=== PATIENT | female | born 1940 | race African-American/Black ===

== ENCOUNTER 2018-06-30 19:32 | Inpatient (IN) | payer BC, OTHER ==
--- NOTE | 2018-06-30 19:40 | PDOC ---
Rapid Medical Evaluation Time Seen by Provider: 06/30/18 19:37 Medical Evaluation: Allergies Allergy/AdvReac Type Severity Reaction Status Date / Time No Known Allergies Allergy Verified 12/28/12 16:20 06/30/18 19:37 I have performed a brief in-person evaluation of this patient. The patient presents with a chief complaint of: sent by PMD for PE Pertinent physical exam findings: Lungs CTAB. RRR. No m/r/g. I have ordered the following: labs, ekg The patient will proceed to the ED for further evaluation. Discharge Disposition - Diagnosis Pulmonary embolism - Referrals - Patient Instructions - Post Discharge Activity
--- NOTE | 2018-06-30 19:55 | PDOC ---
History of Present Illness - General Chief Complaint: Shortness of Breath Stated Complaint: SEND BY DOCTOR Time Seen by Provider: 06/30/18 19:37 History Source: Patient Exam Limitations: No Limitations - History of Present Illness Initial Comments: Pt is a 78 yo F, with PMH of NIDDM and HTN, who is presenting after being sent by her PCP after a positive CT scan of the chest showing PE. Pt states she has had consistent SOB with exertion over the past year, with intermittent b/l LE swelling. Pt travels 1-2 times per year to [place] by plane to visit family. Pt was supposed to have the CTA done in February 2018, but did not follow up, and went to [place] for one month in April 2018. Pt denies any surgeries or estrogen medication use. Pt denies any recent fevers/chills, headache, vision changes, syncope, chest pain, palpitations, orthopnea/PND, nausea/vomiting, abdominal pain, urinary symptoms, or diarrhea/constipation. Social: Pt denies any cigarette, alcohol, or drug use. Pt travels to [place] as above. Surgical: no relevant history. Family: no relevant history. 06/30/18 22:08 Past History - Travel Traveled outside of the country in the last 30 days: No Close contact w/someone who was outside of country & ill: No - Past Medical History Allergies/Adverse Reactions: Allergies Allergy/AdvReac Type Severity Reaction Status Date / Time No Known Allergies Allergy Verified 06/30/18 19:41 Home Medications: Ambulatory Orders Aspirin [ASA -] 81 mg PO DAILY 12/28/12 Simvastatin [Zocor -] 20 mg PO HS 12/28/12 metFORMIN HCL [Glucophage] 1,000 mg PO BID 12/28/12 Losartan/Hydrochlorothiazide [Losartan-Hctz 100-25 mg Tab] 1 tab PO DAILY Metoprolol Succinate 50 mg PO DAILY 06/30/18 COPD: No Diabetes: Yes (NIDM) HTN: Yes Hypercholesterolemia: Yes - Suicide/Smoking/Psychosocial Hx Smoking Status: No Smoking History: Never smoked Have you smoked in the past 12 months: No Number of Cigarettes Smoked Daily: 0 Drug/Substance Use Hx: No Substance Use Type: None Review of Systems - Review of Systems Able to Perform ROS?: Yes Is the patient limited Nauruan proficient: No Constitutional: Yes: Weight Stable. No: Chills, Diaphoresis, Fever, Loss of Appetite, Malaise, Weakness HEENTM: No: Blurred Vision, Double Vision, Nose Congestion, Throat Pain, Throat Swelling, Difficulty Swallowing Respiratory: Yes: Shortness of Breath, SOB with Exertion. No: Cough, Orthopnea , SOB at Rest, Wheezing, Productive cough, Hemoptysis Cardiac (ROS): No: Chest Pain, Edema, Irregular Heart Rate, Lightheadedness, Palpitations, Syncope, Chest Tightness ABD/GI: No: Constipated, Diarrhea, Nausea, Poor Appetite, Poor Fluid Intake, Vomiting : No: Burning, Dysuria, Pain, Urgency Musculoskeletal: No: Back Pain, Joint Pain, Muscle Pain, Muscle Weakness Integumentary: No: Rash Neurological: No: Headache, Numbness, Paresthesia, Weakness, Unsteady Gait, Ataxia, Dizziness Psychiatric: No: Sleep Pattern Change, Change in Appetite Endocrine: No: Increased Urine, Change in Weight Hematologic/Lymphatic: No: Anemia, Blood Clots, Easy Bleeding, Easy Bruising All Other Systems: Reviewed and Negative *Physical Exam - Vital Signs Last Vital Signs Temp Pulse Resp BP Pulse Ox 98.0 F 66 20 184/68 H 100 06/30/18 19:37 06/30/18 19:37 06/30/18 19:37 06/30/18 19:37 06/30/18 19:37 - Physical Exam Comments: HTN 184/68 (improved to 148/76 on exam), pt afebrile. Pt in NAD, normal body habitus. Pt alert and oriented x3. 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 Head normocephalic, atraumatic. Eyes PERRLA, EOMI. Oropharynx without erythema or exudates, no LAD b/l. No nasal congestion, hearing intact. Clear heart sounds, S1/S2, no JVD, b/l pedal edema, or heart murmur. Clear lung sounds, no respiratory distress, wheezes, crackles, or accessory muscle use. No abdominal or CVA tenderness to palpation, no rebound, no guarding. Abdomen soft, non-distended, and with normoactive bowel sounds. Skin without jaundice or rash. 06/30/18 20:30 07/01/18 01:12 ED Treatment Course - LABORATORY CBC & Chemistry Diagram: 06/30/18 19:58 06/30/18 19:58 Medical Decision Making - Medical Decision Making Pt was seen at bedside, also will be seen by attending Dr. Lee. Pt presenting after being sent by her PCP after a positive CT scan of the chest showing PE. Pt states she has had consistent SOB with exertion over the past year, with intermittent b/l LE swelling. Pt travels 1-2 times per year to [place] by plane to visit family. Pt was supposed to have the CTA done in February 2018, but did not follow up, and went to [place] for one month in April 2018. Pt denies any recent fevers/chills, headache, vision changes, syncope, chest pain, palpitations, orthopnea/PND, nausea/vomiting, abdominal pain, urinary symptoms, or diarrhea/constipation. Will also obtain cardiac enzymes, BNP, bedside echo to eval for heart strain/ heart failure. Ordered work-up including CBC, CMP, BNP, cardiac profile, chest x-ray. Will continue to reassess pt and monitor for symptomatic improvement. ECG: NSR, with LVQ and QRS widening (HR 68, DE 178, QRS 116, QTc 433). No TWIs or significant ST segment changes. No prior ECG for comparison. 06/30/18 21:19 CBC: WBC 3.3, platelets 191 (no priors for comparison) CMP: BUN 14, Cr 1.0 -- will provide 1 L IV NS as pt has contrast yesterday, as well as 80 mg SQ lovenox. Trop .08 -- will monitor, also will look with bedside echo to eval for heart strain. Pt was admitted to Dr. Zachary Gilliam (pts PCP) and consults orders placed for Dr. Kauffman and Dr. Gonzalez. Pt currently asymptomatic and resting comfortably. 06/30/18 22:05 Bedside echo showed no heart strain. Pt resting comfortably, vitals stable. O2 100% on RA. 07/01/18 01:13 *DC/Admit/Observation/Transfer Diagnosis at time of Disposition: Pulmonary embolism Qualifiers: Pulmonary embolism type: unspecified Chronicity: unspecified Acute cor pulmonale presence: without acute cor pulmonale Qualified Code(s): I26.99 - Other pulmonary embolism without acute cor pulmonale - Discharge Dispostion Condition at time of disposition: Stable Decision to Admit order: Yes - Referrals - Patient Instructions - Post Discharge Activity
[2018-06-30 20:39] LABS: BASO % 0.6 % (0-2.0); EOS % 3.8 % (0-4.5); HEMATOCRIT 36.2 % (32.4-45.2); HEMOGLOBIN 11.9 GM/dL (10.7-15.3); LYMPH % 37.7 % (8-40); MCHC 32.8 g/dl (32.0-36.0); MEAN CELL VOLUME 97.7 fl (80-96); MEAN PLT VOLUME 9.4 fl (7.5-11.1); MONO % 11.3 % (3.8-10.2); NEUT % 46.6 % (42.8-82.8); PLATELET COUNT 191 K/MM3 (134-434); RBC 3.71 M/mm3 (3.60-5.2); WHITE BLOOD COUNT 3.3 K/mm3 (4.0-10.0)
--- NOTE | 2018-06-30 20:53 | PDOC ---
Documentation entered by Lizeth Traylor SCRIBE, acting as scribe for Nandini Lee DO. Nandini Lee DO: This documentation has been prepared by the Kymberly daniels Nirvannie, SCRIBE, under my direction and personally reviewed by me in its entirety. I confirm that the documentation accurately reflects all work, treatment, procedures, and medical decision making performed by me. Attending Attestation - Resident Resident Name: PippaJennifer - ED Attending Attestation I have performed the following: I have examined & evaluated the patient, The case was reviewed & discussed with the resident, I agree w/resident's findings & plan - HPI HPI: 06/30/18 20:53 The patient is a 78 year old female, with a significant past medical history of DM, HTN, and HLD, who presents to the emergency department positive PE on CT. As per patient, she has been experiencing mild exertional shortness of breath. As per pts PCP, she has a positive PE on CT prompting his to refer her to the ED for admission and further evaluation. She denies recent fevers, chills, headache or dizziness. She denies recent nausea, vomit, diarrhea or constipation. She denies recent dysuria, frequency, urgency or hematuria. She denies recent chest pain or palpitations. Allergies: NKDA Primary Care Physician: Dr. Zachary Gilliam - Physicial Exam PE: 06/30/18 20:53 Constitutional: Awake, alert, oriented. No acute distress. Head: Normocephalic. Atraumatic Eyes: PERRL. EOMI. Conjunctivae are not pale. ENT: Mucous membranes are moist and intact. Posterior pharynx without exudates or erythema. Uvula midline. Neck: Supple. Full ROM. No lymphadenopathy. Cardiovascular: Regular rate. Regular rhythm. S1, S2 regular. Distal pulses are 2+ and symmetric. Pulmonary/Chest: No evidence of respiratory distress. Clear to auscultation bilaterally No wheezing, rales or rhonchi. Abdominal: Soft and non-distended. There is no tenderness. No rebound, guarding or rigidity. No organomegaly. No palpable masses. Good bowel sounds. Back: No CVA tenderness. Musculoskeletal: +Mild right knee tenderness (chronic, receives cortisone injections). No edema. No cyanosis. No clubbing. Full range of motion in all extremities. No calf tenderness. Radial/pedal pulses are intact and 2+ bilaterally Skin: Skin is warm and dry. No petechiae. No purpura. Neurological: Alert and oriented to person, place, and time. Cranial nerves II -XII are grossly intact. Normal speech. Strength is grossly symmetric. No sensory deficits. Psychiatric: Good eye contact. Normal interaction, affect and behavior. - Medical Decision Making 06/30/18 20:47 I, Dr. Nandini Lee, DO, attest that this document has been prepared under my direction and personally reviewed by me in its entirety. I further attest, that it accurately reflects all work, treatment, procedures and medical decision -making performed by me. 06/30/18 20:47 a/p: 78yo female with +CT for a PE -sent by Dr. Gilliam for labs, admission -pt states MELGOZA, no cp, feels generally weak when she walks -traveled to [place], no leg swelling, no calf cramping, hx of chronic R knee pain and has received cortisone injections -outpt CT shows a RLL PE -labs, duplex ultrasound legs 06/30/18 20:48 -case discussed with Dr. Gilliam who requests consults to Dr. Cherri Lane -v/q scan tomorrow -agrees with duplex ultrasound tonight -lovenox if renal function permits -will monitor and reassess -pt is hemodynamically normal 06/30/18 22:26 cxr clear 06/30/18 23:00 no dvt 07/01/18 00:03 bedside ultrasound echo does not show pericardial effusion or acute rv strain 07/01/18 00:05 dr. gilliam accepts pt to service Heart Score/ECG Review - ECG Intrepretation Comment:: 06/30/18 20:52 sinus at 69, nl axis, nl interval, lvh, no acute st/t wave findings
[2018-06-30 20:54] LABS: INR 0.96 (0.83-1.09); PROTHROMBIN TIME (PATIENT) 11.3 SEC (9.7-13.0)
[2018-06-30 21:11] LABS: ALBUMIN 3.8 g/dl (3.4-5.0); ALK PHOS 69 U/L (45-117); ANION GAP 6 MMOL/L (8-16); BILIRUBIN,TOTAL 0.3 mg/dL (0.2-1); BLOOD UREA NITROGEN 14 mg/dL (7-18); CALCIUM 9.5 mg/dL (8.5-10.1); CHLORIDE 107 mmol/L (98-107); CO2 31 mmol/L (21-32); GLUCOSE,RANDOM 141 mg/dL (74-106); N-TERMINAL BNP 148.8 pg/ml (5-450); POTASSIUM 3.6 mmol/L (3.5-5.1); SGOT/AST 15 U/L (15-37); SGPT/ALT 20 U/L (13-61); SODIUM 143 mmol/L (136-145); TOT PROT 7.2 g/dl (6.4-8.2)
[2018-06-30] MEDS ORDERED: SODIUM CHLORIDE 1,000 ML IV STA (21:16)
[2018-06-30] MEDS ORDERED: ENOXAPARIN NA (PORCINE) 80 MG/0.8 ML DISP.SYRIN SQ ONE ×2 (21:18→22:04)
[2018-06-30] MEDS ORDERED: metoPROLOL SUCCINATE 25 MG TAB.SR.24H (FP) PO ONE (23:53)
[2018-07-01] MEDS: ENOXAPARIN NA (PORCINE) 80 MG/0.8 ML DISP.SYRIN SQ SCH ×2 (00:43→10:47)
[2018-07-01] MEDS ORDERED: metFORMIN HCL 500 MG TABLET (FP) ONE (07:11)
[2018-07-01] MEDS: metFORMIN HCL 500 MG TABLET (FP) PO SCH ×2 (07:13→16:52)
[2018-07-01 08:27] LABS: BASO % 0.9 % (0-2.0); EOS % 4.7 % (0-4.5); HEMATOCRIT 35.5 % (32.4-45.2); HEMOGLOBIN 11.9 GM/dL (10.7-15.3); LYMPH % 44.5 % (8-40); MCH 32.5 pg (25.7-33.7); MCHC 33.6 g/dl (32.0-36.0); MEAN CELL VOLUME 96.9 fl (80-96); MEAN PLT VOLUME 9.1 fl (7.5-11.1); MONO % 11.8 % (3.8-10.2); NEUT % 38.1 % (42.8-82.8); PLATELET COUNT 164 K/MM3 (134-434); RBC 3.67 M/mm3 (3.60-5.2); RDW 13.3 % (11.6-15.6); WHITE BLOOD COUNT 2.6 K/mm3 (4.0-10.0)
[2018-07-01 09:00] LABS: ALBUMIN 3.3 g/dl (3.4-5.0); ALK PHOS 60 U/L (45-117); ANION GAP 5 MMOL/L (8-16); BILIRUBIN,TOTAL 0.5 mg/dL (0.2-1); BLOOD UREA NITROGEN 12 mg/dL (7-18); CALCIUM 9.1 mg/dL (8.5-10.1); CHLORIDE 109 mmol/L (98-107); CO2 30 mmol/L (21-32); CREATININE 0.9 mg/dL (0.55-1.3); GLUCOSE,RANDOM 146 mg/dL (74-106); SGOT/AST 12 U/L (15-37); SGPT/ALT 17 U/L (13-61); SODIUM 144 mmol/L (136-145); TOT PROT 6.6 g/dl (6.4-8.2)
[2018-07-01] MEDS ORDERED: ASPIRIN COATED 81 MG TABLET.EC PO SCH (10:00)
[2018-07-01] MEDS: LOSARTAN 50MG/HCTZ 12.5MG 1 TAB (FP) PO SCH (10:47)
--- NOTE | 2018-07-01 11:34 | HP ---
Admitting History and Physical - Admission Chief Complaint: sob on excertion depsite card w/u neg did ct chest outpt piced rll embolism. no other complaints sat 99% History Source: Patient Limitations to Obtaining History: No Limitations - Smoking History Smoking history: Never smoked Have you smoked in the past 12 months: No Aproximately how many cigarettes per day: 0 Home Medications - Allergies Allergies/Adverse Reactions: Allergies Allergy/AdvReac Type Severity Reaction Status Date / Time No Known Allergies Allergy Verified 06/30/18 19:41 - Home Medications Home Medications: Ambulatory Orders Aspirin [ASA -] 81 mg PO DAILY 12/28/12 Simvastatin [Zocor -] 20 mg PO HS 12/28/12 metFORMIN HCL [Glucophage] 1,000 mg PO BID 12/28/12 Losartan/Hydrochlorothiazide [Losartan-Hctz 100-25 mg Tab] 1 tab PO DAILY Metoprolol Succinate 50 mg PO DAILY 06/30/18 Family Disease History - Family Disease History Family History: Unremarkable Review of Systems - Review of Systems Respiratory: reports: SOB on Exertion Physical Examination Vital Signs: Vital Signs Temperature 97.8 F 07/01/18 07:18 Pulse Rate 57 L 07/01/18 07:18 Respiratory Rate 18 07/01/18 07:18 Blood Pressure 146/72 07/01/18 07:18 O2 Sat by Pulse Oximetry (%) 99 07/01/18 07:18 Constitutional: Yes: Well Nourished Eyes: Yes: WNL HENT: Yes: WNL Neck: Yes: WNL Cardiovascular: Yes: WNL Respiratory: Yes: WNL Gastrointestinal: Yes: WNL ...Rectal Exam: Yes: Deferred Renal/: Yes: WNL Breast(s): Yes: WNL Musculoskeletal: Yes: WNL Extremities: Yes: WNL Edema: No Peripheral Pulses WNL: Yes Integumentary: Yes: WNL ...Motor Strength: WNL Psychiatric: Yes: WNL Labs: CBC, BMP 07/01/18 07:20 07/01/18 07:20 Assessment/Plan no need for o2 pulom and card today v/q scan?? will get ct results from [facility] tx as is
--- NOTE | 2018-07-01 12:07 | EKG ---
Test Reason : Blood Pressure : / mmHG Vent. Rate : 068 BPM Atrial Rate : 068 BPM P-R Int : 178 ms QRS Dur : 116 ms QT Int : 408 ms P-R-T Axes : 034 -27 014 degrees QTc Int : 433 ms NORMAL SINUS RHYTHM LEFT VENTRICULAR HYPERTROPHY WITH QRS WIDENING ABNORMAL ECG WHEN COMPARED WITH ECG OF 28-DEC-2012 23:19, NO SIGNIFICANT CHANGE WAS FOUND Confirmed by FLACO TILLMAN MD ([id number]) on 07/01/2018 12:06:40 PM Referred By: Confirmed By:FLACO TILLMAN MD
--- NOTE | 2018-07-01 12:27 | CON.PULM ---
Consult Consult Specialty:: PULMONARY Referred by:: Dr Gilliam Reason for Consultation:: pulmonary embolism - History of Present Illness Chief Complaint: shortness of breath History of Present Illness: 78yo female with h/o HTN, DM, hypercholesterolemia who was sent by PMD after outpt CTA chest showing pulmonary embolism. She denies any chest pain but with worsening dyspnea on exertion and leg swelling for the past year. No fevers, chills or sweats. CTA report pending, pt denies any personal or family history of clots. She is a nonsmoker, not on hormonal therapy. No recent prolonged immobilization. No leg trauma. - History Source History Provided By: Patient, Medical Record Limitations to Obtaining History: No Limitations - Past Medical History Cardio/Vascular: Yes: HTN Endocrine: Yes: Diabetes Mellitus - Smoking History Smoking history: Never smoked Have you smoked in the past 12 months: No Aproximately how many cigarettes per day: 0 Home Medications - Allergies Allergies/Adverse Reactions: Allergies Allergy/AdvReac Type Severity Reaction Status Date / Time No Known Allergies Allergy Verified 06/30/18 19:41 - Home Medications Home Medications: Ambulatory Orders Aspirin [ASA -] 81 mg PO DAILY 12/28/12 Simvastatin [Zocor -] 20 mg PO HS 12/28/12 metFORMIN HCL [Glucophage] 1,000 mg PO BID 12/28/12 Losartan/Hydrochlorothiazide [Losartan-Hctz 100-25 mg Tab] 1 tab PO DAILY Metoprolol Succinate 50 mg PO DAILY 06/30/18 Review of Systems - Review of Systems Constitutional: reports: Weakness. denies: Chills, Fever Eyes: denies: Recent Change in Vision HENT: denies: Nasal Congestion, Throat Pain Neck: denies: Stiffness, Tenderness Cardiovascular: reports: Edema, Shortness of Breath. denies: Chest Pain, Palpitations Respiratory: reports: Exercise Intolerance, SOB on Exertion. denies: Cough, Hemoptysis, Wheezing Gastrointestinal: denies: Abdominal Pain, Nausea, Vomiting Genitourinary: denies: Dysuria, Hematuria Neurological: denies: Dizziness, Headache Endocrine: denies: Unexplained Weight Loss Physical Exam Vital Sings: Vital Signs Temperature 98.0 F 07/01/18 08:35 Pulse Rate 67 07/01/18 08:35 Respiratory Rate 18 07/01/18 08:35 Blood Pressure 139/86 07/01/18 08:35 O2 Sat by Pulse Oximetry (%) 99 07/01/18 07:18 Constitutional: Yes: Calm Eyes: Yes: Conjunctiva Clear, EOM Intact HENT: Yes: Atraumatic, Normocephalic Neck: Yes: Supple, Trachea Midline Cardiovascular: Yes: Regular Rate and Rhythm Respiratory: Yes: Diminished (decreased breath sounds at the bases) ...Clubbing: No Gastrointestinal: Yes: Normal Bowel Sounds, Soft. No: Tenderness Edema: No Labs: CBC, BMP 07/01/18 07:20 07/01/18 07:20 Imaging - Results Chest X-ray: Report Reviewed, Image Reviewed (no infiltrates) Problem List - Problems (1) Pulmonary embolism Code(s): I26.99 - OTHER PULMONARY EMBOLISM WITHOUT ACUTE COR PULMONALE Qualifiers: Pulmonary embolism type: unspecified Chronicity: unspecified Acute cor pulmonale presence: without acute cor pulmonale Qualified Code(s): I26.99 - Other pulmonary embolism without acute cor pulmonale Assessment/Plan r/o Acute Pulmonary Embolism r/o CHF HTN DM Hypercholesterolemia - f/u outpt radiology report - echocardiogram - continue anticoagulation for at least 6 months - if echocardiogram without evidence of right heart dysfunction, can start Eliquis 10mg BID x 7 days then maintenance dose 5mg BID - pt saturating 99% on room air, no need for supplemental O2 - outpt age appropriate cancer screening - outpt PFTs Thank you for this consult Giorgio Mayes MD
--- NOTE | 2018-07-01 15:56 | ECHO ---
Name: ROBERTH MADRIGAL Exam:Adult Echocardiogram Study Date: 07/01/2018 01:30 PM Age: 78 yrs Reason For Study: PULMONARY EMBOLISM Height: 68 in Weight: 185 lb BSA: 2.0 m2 MMode/2D Measurements & Calculations IVSd: 0.78 cm Ao root diam: 3.9 cm LVIDd: 5.0 cm LA dimension: 2.7 cm LVIDs: 3.5 cm LVPWd: 0.78 cm EDV(Teich): 118.1 ml LVOT diam: 2.3 cm ESV(Teich): 49.4 ml Doppler Measurements & Calculations MV E max alhaji: 40.0 cm/sec Ao V2 max: 140.0 cm/sec MV A max alhaji: 70.1 cm/sec Ao max P.9 mmHg MV E/A: 0.57 Ao V2 mean: 98.0 cm/sec Ao mean P.3 mmHg Ao V2 VTI: 31.7 cm JODY(I,D): 2.1 cm2 AI P1/2t: 593.5 msec JODY(V,D): 2.0 cm2 AI max alhaji: 442.8 cm/sec LV V1 max P.6 mmHg AI max P.5 mmHg LV V1 mean P.92 mmHg AI dec slope: 218.5 cm/sec2 LV V1 max: 63.7 cm/sec LV V1 mean: 45.4 cm/sec LV V1 VTI: 15.8 cm SV(LVOT): 68.2 ml TR max alhaji: 203.0 cm/sec TR max P.6 mmHg PI end-d alhaji: 81.4 cm/sec Med Peak E' Alhaji: 3.4 cm/sec Med E/e': 11.7 Lat Peak E' Alhaji: 6.2 cm/sec Lat E/e': 6.4 Procedure A complete two-dimensional transthoracic echocardiogram was performed (2D, M-mode, Doppler and color flow Doppler). Left Ventricle The left ventricular size, thickness and function are normal. The left ventricular ejection fraction is normal. Ejection Fraction = 55-60%. The left ventricular wall motion is normal. Right Ventricle The right ventricle is normal in size and function. Atria Normal left and right atrial size and function. Mitral Valve There is no mitral regurgitation noted. Tricuspid Valve There is trace tricuspid regurgitation. Right ventricular systolic pressure is normal. Aortic Valve The aortic valve is trileaflet. No hemodynamically significant valvular aortic stenosis. Mild aortic regurgitation. Pulmonic Valve There is no pulmonic valvular regurgitation. Great Vessels Mild aortic root dilatation. Pericardium/Pleura There is no pericardial effusion. Interpretation Summary The left ventricular size, thickness and function are normal The right ventricle is normal in size and function. There is trace tricuspid regurgitation. Mild aortic regurgitation. Mild aortic root dilatation. MD Brigido Griffin 07/01/2018 03:55 PM
[2018-07-01 16:17] VITALS: BMI 27.7
--- NOTE | 2018-07-01 16:18 | EKG ---
Test Reason : Blood Pressure : / mmHG Vent. Rate : 056 BPM Atrial Rate : 056 BPM P-R Int : 188 ms QRS Dur : 100 ms QT Int : 418 ms P-R-T Axes : 043 -21 -04 degrees QTc Int : 403 ms SINUS BRADYCARDIA MODERATE VOLTAGE CRITERIA FOR LVH, MAY BE NORMAL VARIANT NONSPECIFIC ST AND T WAVE ABNORMALITY ABNORMAL ECG WHEN COMPARED WITH ECG OF 30-JUN-2018 20:03, NO SIGNIFICANT CHANGE WAS FOUND Confirmed by LAYNE TORRES, FLACO ([id number]) on 07/01/2018 4:18:22 PM Referred By: SAURABH TADEO Confirmed By:FLACO TILLMAN MD
--- NOTE | 2018-07-01 17:01 | CON.CARD ---
Consult Consult Specialty:: Cardiology Reason for Consultation:: Positive PE's - History of Present Illness Chief Complaint: Positive PE History of Present Illness: This is a 78 year old female with a PMH of NIDDM and HTN. She noted new onset MELGOZA where she could only walk about about 4 blocks without stopping and had intermitted leg swelling. Her last plane flight was from [place] last February. She had a CT scan of her chest which was positive for a PE. She denies chest pain at this time. Sinus bradycardia at 56 BPM with LAD, moderate LVH, normal intervals, and NSSTTW changes. Echocardiogram 07/01/18: EF 55-60% Normal LV size and function Normal RV size and function Trace TR Mild AI Mild aortic root dilatation - Past Medical History Cardio/Vascular: Yes: HTN ...: No Endocrine: Yes: Diabetes Mellitus - Alcohol/Substance Use Hx Alcohol Use: No - Smoking History Smoking history: Never smoked Have you smoked in the past 12 months: No Aproximately how many cigarettes per day: 0 Home Medications - Allergies Allergies/Adverse Reactions: Allergies Allergy/AdvReac Type Severity Reaction Status Date / Time No Known Allergies Allergy Verified 06/30/18 19:41 - Home Medications Home Medications: Ambulatory Orders Aspirin [ASA -] 81 mg PO DAILY 12/28/12 Simvastatin [Zocor -] 20 mg PO HS 12/28/12 metFORMIN HCL [Glucophage] 1,000 mg PO BID 12/28/12 Losartan/Hydrochlorothiazide [Losartan-Hctz 100-25 mg Tab] 1 tab PO DAILY Metoprolol Succinate 50 mg PO DAILY 06/30/18 Vital Signs: Vital Signs Temperature 98 F 07/01/18 16:12 Pulse Rate 60 07/01/18 15:00 Respiratory Rate 18 07/01/18 16:12 Blood Pressure 165/74 07/01/18 16:12 O2 Sat by Pulse Oximetry (%) 95 07/01/18 16:17 Constitutional: Yes: Well Nourished Eyes: Yes: WNL HENT: Yes: WNL Neck: Yes: WNL Respiratory: Yes: CTA Bilaterally Gastrointestinal: Yes: Soft Cardiovascular: Yes: Regular Rate and Rhythm Heart Sounds: Yes: S1, S2 (No MRHG) Extremities: Yes: WNL Edema: LLE: Trace, RLE: Trace - Other Data Labs, Other Data: CBC, BMP 07/01/18 07:20 07/01/18 07:20 INR, PTT INR 0.96 (0.83-1.09) 06/30/18 19:58 Troponin, BNP 06/30/18 07/01/18 19:58 07:20 Troponin I 0.08 H 0.10 H B-Natriuretic Peptide 148.8 Troponin, BNP 06/30/18 07/01/18 19:58 07:20 Troponin I 0.08 H 0.10 H B-Natriuretic Peptide 148.8 Assessment/Plan 78 year old female with a PMH of NIDDM and HTN. She noted new onset MELGOZA where she could only walk about about 4 blocks without stopping and had intermitted leg swelling. Her last plane flight was from [place] last February. She had a CT scan of her chest which was positive for a PE. She denies chest pain at this time. Sinus bradycardia at 56 BPM with LAD, moderate LVH, normal intervals, and NSSTTW changes. Echocardiogram 07/01/18: EF 55-60% Normal LV size and function Normal RV size and function Trace TR Mild AI Mild aortic root dilatation PE No evidence for RV strain, so no need to consider thrombectomy and/or thrombolytics Presently on Lovenox Can transition to apixaban. The dose for treating a PE is 10 mg Q12 hours for 7 days followed by 5 mg Q12 hours. In her case, I would favor life long AC because this PE seems like it was unprovoked. The dose of apixaban should be given 6 hours after the last dose of Lovenox. Would stop aspirin once on apixaban. HTN/HLD Continue Hyzaar and Lipitor
[2018-07-01] MEDS ORDERED: PT OWN MED DRAWER 7, Y5N ONE (21:03)
[2018-07-01] MEDS: ATORVASTATIN CA 20 MG TABLET (FP) PO SCH (21:35)
[2018-07-01] MEDS: APIXABAN 5 MG TABLET PO SCH (21:39)
[2018-07-02] MEDS: metFORMIN HCL 500 MG TABLET (FP) PO SCH ×2 (06:30→16:31)
[2018-07-02 07:35] LABS: BASO % 0.8 % (0-2.0); EOS % 4.4 % (0-4.5); HEMATOCRIT 39.1 % (32.4-45.2); HEMOGLOBIN 12.7 GM/dL (10.7-15.3); LYMPH % 46.6 % (8-40); MCH 31.5 pg (25.7-33.7); MCHC 32.5 g/dl (32.0-36.0); MEAN PLT VOLUME 9.7 fl (7.5-11.1); MONO % 8.2 % (3.8-10.2); PLATELET COUNT 176 K/MM3 (134-434); RBC 4.03 M/mm3 (3.60-5.2); RDW 13.1 % (11.6-15.6); WHITE BLOOD COUNT 3.1 K/mm3 (4.0-10.0)
[2018-07-02 07:37] LABS: INR 1.18 (0.83-1.09)
[2018-07-02 07:44] LABS: ANION GAP 5 MMOL/L (8-16); BLOOD UREA NITROGEN 12 mg/dL (7-18); CALCIUM 9.4 mg/dL (8.5-10.1); CHLORIDE 106 mmol/L (98-107); CO2 31 mmol/L (21-32); CREATININE 0.9 mg/dL (0.55-1.3); GLUCOSE,RANDOM 140 mg/dL (74-106); POTASSIUM 3.6 mmol/L (3.5-5.1); SODIUM 142 mmol/L (136-145)
[2018-07-02] MEDS ORDERED: PT OWN MED DRAWER 7, Y5N ONE (09:32)
--- NOTE | 2018-07-02 10:16 | PN ---
Progress Note, Physician Chief Complaint: pt c/o chr knee pain w diff walking ? [facility] rehab - Current Medication List Current Medications: Active Medications Apixaban (Eliquis -) 10 mg PO BID [facility] Last Admin: 07/01/18 21:39 Dose: 10 mg Atorvastatin Calcium (Lipitor -) 20 mg PO HS [facility] Last Admin: 07/01/18 21:35 Dose: 20 mg HCTZ/Losartan Potassium (Hyzaar -) 1 tab PO DAILY [facility] Last Admin: 07/01/18 10:47 Dose: 1 tab Metformin HCl (Glucophage -) 1,000 mg PO BID@0700,1630 [facility] Last Admin: 07/02/18 06:30 Dose: 1,000 mg - Objective Vital Signs: Vital Signs Temperature 97.9 F 07/02/18 05:51 Pulse Rate 54 L 07/02/18 05:51 Respiratory Rate 18 07/02/18 07:13 Blood Pressure 168/71 07/02/18 05:51 O2 Sat by Pulse Oximetry (%) 97 07/02/18 07:13 Labs: CBC, BMP 07/02/18 06:00 07/02/18 06:00 INR, PTT INR 1.18 (0.83-1.09) H 07/02/18 06:00
[2018-07-02] MEDS: APIXABAN 5 MG TABLET PO SCH ×2 (10:22→21:21)
[2018-07-02] MEDS: LOSARTAN 50MG/HCTZ 12.5MG 1 TAB (FP) PO SCH (10:22)
--- NOTE | 2018-07-02 13:12 | PN ---
Progress Note, Physician Chief Complaint: c/o back and knee pain scale 5 - Current Medication List Current Medications: Active Medications Apixaban (Eliquis -) 10 mg PO BID [facility] Last Admin: 07/02/18 10:22 Dose: 10 mg Atorvastatin Calcium (Lipitor -) 20 mg PO HS [facility] Last Admin: 07/01/18 21:35 Dose: 20 mg HCTZ/Losartan Potassium (Hyzaar -) 1 tab PO DAILY [facility] Last Admin: 07/02/18 10:22 Dose: 1 tab Metformin HCl (Glucophage -) 1,000 mg PO BID@0700,1630 [facility] Last Admin: 07/02/18 06:30 Dose: 1,000 mg - Objective Vital Signs: Vital Signs Temperature 99.7 F H 07/02/18 10:00 Pulse Rate 56 L 07/02/18 10:00 Respiratory Rate 18 07/02/18 11:00 Blood Pressure 151/71 07/02/18 10:00 O2 Sat by Pulse Oximetry (%) 98 07/02/18 11:00 Constitutional: Yes: Well Nourished Eyes: Yes: WNL HENT: Yes: WNL Neck: Yes: WNL Cardiovascular: Yes: WNL Respiratory: Yes: WNL Gastrointestinal: Yes: WNL ...Rectal Exam: Yes: Deferred Genitourinary: Yes: WNL Breast(s): Yes: WNL Musculoskeletal: Yes: Joint Stiffness, Other (mickey knee pains) Edema: No Peripheral Pulses WNL: Yes Integumentary: Yes: WNL Neurological: Yes: WNL Psychiatric: Yes: WNL Labs: CBC, BMP 07/02/18 06:00 07/02/18 06:00 INR, PTT INR 1.18 (0.83-1.09) H 07/02/18 06:00 Assessment/Plan p/t today d/c planning velia today d/c adir [facility] short term rahab pt agreed chk cb c in am if stays one more day
--- NOTE | 2018-07-02 16:23 | PN ---
Progress Note, Physician Chief Complaint: Remains comfortable History of Present Illness: This is a 78 year old female with a PMH of NIDDM and HTN. She noted new onset MELGOZA where she could only walk about about 4 blocks without stopping and had intermitted leg swelling. Her last plane flight was from [place] last February. She had a CT scan of her chest which was positive for a PE. She denies chest pain at this time. Sinus bradycardia at 56 BPM with LAD, moderate LVH, normal intervals, and NSSTTW changes. Echocardiogram 07/01/18: EF 55-60% Normal LV size and function Normal RV size and function Trace TR Mild AI Mild aortic root dilatation 07/02/18 Telem negative Remains comfortable - Current Medication List Current Medications: Active Medications Apixaban (Eliquis -) 10 mg PO BID [facility] Last Admin: 07/02/18 10:22 Dose: 10 mg Atorvastatin Calcium (Lipitor -) 20 mg PO HS [facility] Last Admin: 07/01/18 21:35 Dose: 20 mg HCTZ/Losartan Potassium (Hyzaar -) 1 tab PO DAILY [facility] Last Admin: 07/02/18 10:22 Dose: 1 tab Metformin HCl (Glucophage -) 1,000 mg PO BID@0700,1630 [facility] Last Admin: 07/02/18 06:30 Dose: 1,000 mg - Objective Vital Signs: Vital Signs Temperature 97.9 F 07/02/18 13:59 Pulse Rate 60 07/02/18 13:59 Respiratory Rate 18 07/02/18 15:00 Blood Pressure 141/66 07/02/18 13:59 O2 Sat by Pulse Oximetry (%) 98 07/02/18 15:00 Constitutional: Yes: Well Nourished Neck: Yes: WNL Cardiovascular: Yes: Regular Rate and Rhythm (NL S1S2, no MRHG) Respiratory: Yes: CTA Bilaterally Gastrointestinal: Yes: Soft Edema: No Neurological: Yes: Alert, Oriented Labs: CBC, BMP 07/02/18 06:00 07/02/18 06:00 INR, PTT INR 1.18 (0.83-1.09) H 07/02/18 06:00 Assessment/Plan 78 year old female with a PMH of NIDDM and HTN. She noted new onset MELGOZA where she could only walk about about 4 blocks without stopping and had intermitted leg swelling. Her last plane flight was from [place] last February. She had a CT scan of her chest which was positive for a PE. She denies chest pain at this time. Sinus bradycardia at 56 BPM with LAD, moderate LVH, normal intervals, and NSSTTW changes. Echocardiogram 07/01/18: EF 55-60% Normal LV size and function Normal RV size and function Trace TR Mild AI Mild aortic root dilatation PE No evidence for RV strain, so no need to consider thrombectomy and/or thrombolytics Presently on apixaban. The dose for treating a PE is 10 mg Q12 hours for 7 days followed by 5 mg Q12 hours. In her case, I would favor life long AC because this PE seems like it was unprovoked. HTN/HLD Continue Hyzaar and Lipitor Can DC Telemetry in my opinion. Call prn.
--- NOTE | 2018-07-02 17:37 | PN ---
Progress Note (short form) - Note Progress Note: PULMONARY OOB TO CHAIR Has some dyspnea on exertion Constitutional: Yes: Calm Eyes: Yes: Conjunctiva Clear, EOM Intact HENT: Yes: Atraumatic, Normocephalic Neck: Yes: Supple, Trachea Midline Cardiovascular: Yes: Regular Rate and Rhythm Respiratory: Yes: Diminished (decreased breath sounds at the bases) ...Clubbing: No Gastrointestinal: Yes: Normal Bowel Sounds, Soft. No: Tenderness Edema: No Labs: reviewed - Results Chest X-ray: Report Reviewed, Image Reviewed (no infiltrates) Problem List - Problems (1) Pulmonary embolism Code(s): I26.99 - OTHER PULMONARY EMBOLISM WITHOUT ACUTE COR PULMONALE Qualifiers: Pulmonary embolism type: unspecified Chronicity: unspecified Acute cor pulmonale presence: without acute cor pulmonale Qualified Code(s): I26.99 - Other pulmonary embolism without acute cor pulmonale Assessment/Plan Acute Pulmonary Embolism HTN DM Hypercholesterol - continue anticoagulation for at least 6 months - pt saturating 99% on room air, no need for supplemental O2 - outpt age appropriate cancer screening - outpt PFTs Florian MARSHALL MD
[2018-07-02] MEDS: ATORVASTATIN CA 20 MG TABLET (FP) PO SCH (21:21)
[2018-07-03] MEDS: metFORMIN HCL 500 MG TABLET (FP) PO SCH ×2 (06:10→16:48)
[2018-07-03 06:55] LABS: HEMATOCRIT 36.9 % (32.4-45.2); HEMOGLOBIN 12.3 GM/dL (10.7-15.3); MCH 32.5 pg (25.7-33.7); MCHC 33.4 g/dl (32.0-36.0); MEAN CELL VOLUME 97.3 fl (80-96); MEAN PLT VOLUME 9.5 fl (7.5-11.1); PLATELET COUNT 164 K/MM3 (134-434); RBC 3.79 M/mm3 (3.60-5.2); RDW 12.8 % (11.6-15.6); WHITE BLOOD COUNT 3.4 K/mm3 (4.0-10.0)
[2018-07-03] MEDS ORDERED: PT OWN MED DRAWER 7, Y5N ONE (09:19)
[2018-07-03] MEDS: APIXABAN 5 MG TABLET PO SCH ×2 (09:31→21:07)
[2018-07-03] MEDS: LOSARTAN 50MG/HCTZ 12.5MG 1 TAB (FP) PO SCH (09:32)
--- NOTE | 2018-07-03 11:39 | PN ---
Progress Note, Physician - Current Medication List Current Medications: Active Medications Apixaban (Eliquis -) 10 mg PO BID [facility] Last Admin: 07/03/18 09:31 Dose: 10 mg Atorvastatin Calcium (Lipitor -) 20 mg PO HS [facility] Last Admin: 07/02/18 21:21 Dose: 20 mg HCTZ/Losartan Potassium (Hyzaar -) 1 tab PO DAILY [facility] Last Admin: 07/03/18 09:32 Dose: 1 tab Metformin HCl (Glucophage -) 1,000 mg PO BID@0700,1630 [facility] Last Admin: 07/03/18 06:10 Dose: 1,000 mg - Objective Vital Signs: Vital Signs Temperature 97.8 F 07/03/18 09:30 Pulse Rate 69 07/03/18 09:30 Respiratory Rate 18 07/03/18 09:30 Blood Pressure 146/69 07/03/18 09:30 O2 Sat by Pulse Oximetry (%) 96 07/02/18 20:54 Labs: CBC, BMP 07/03/18 05:30 07/02/18 06:00 INR, PTT INR 1.18 (0.83-1.09) H 07/02/18 06:00 Assessment/Plan spoke to pt in front of rn ? nurse pt never rufused shital baig f/u eye f/u post rehab pt refusing tkr for knees so rehab advisable
--- NOTE | 2018-07-03 14:04 | PN ---
Progress Note (short form) - Note Progress Note: OOB to chair. Feels overall better. No CP or SOB. Intake & Output 06/30/18 07/01/18 07/02/18 07/03/18 23:59 23:59 23:59 23:59 Intake Total 240 1120 450 Balance 240 1120 450 Weight 185 lb 191 lb Last Vital Signs Temp Pulse Resp BP Pulse Ox 97.8 F 69 18 146/69 97 07/03/18 09:30 07/03/18 09:30 07/03/18 09:30 07/03/18 09:30 07/03/18 09:30 Active Medications Apixaban (Eliquis -) 10 mg PO BID [facility] Last Admin: 07/03/18 09:31 Dose: 10 mg Atorvastatin Calcium (Lipitor -) 20 mg PO HS [facility] Last Admin: 07/02/18 21:21 Dose: 20 mg HCTZ/Losartan Potassium (Hyzaar -) 1 tab PO DAILY [facility] Last Admin: 07/03/18 09:32 Dose: 1 tab Metformin HCl (Glucophage -) 1,000 mg PO BID@0700,1630 [facility] Last Admin: 07/03/18 06:10 Dose: 1,000 mg Constitutional: Yes: NAD Eyes: Yes: Conjunctiva Clear, EOM Intact HENT: Yes: Atraumatic, Normocephalic Neck: Yes: Supple, Trachea Midline Cardiovascular: Yes: Regular Rate and Rhythm Respiratory: Yes: Diminished at the bases ...Clubbing: No Gastrointestinal: Yes: Normal Bowel Sounds, Soft. No: Tenderness Edema: No Labs: reviewed Laboratory Results - last 24 hr 07/03/18 07/03/18 05:30 06:09 WBC 3.4 L RBC 3.79 Hgb 12.3 Hct 36.9 MCV 97.3 H MCH 32.5 MCHC 33.4 RDW 12.8 Plt Count 164 MPV 9.5 POC Glucometer 102 Problem List - Problems (1) Pulmonary embolism Code(s): I26.99 - OTHER PULMONARY EMBOLISM WITHOUT ACUTE COR PULMONALE Qualifiers: Pulmonary embolism type: unspecified Chronicity: unspecified Acute cor pulmonale presence: without acute cor pulmonale Qualified Code(s): I26.99 - Other pulmonary embolism without acute cor pulmonale Assessment/Plan Acute Pulmonary Embolism HTN DM Hypercholesterolemia Eliquis 10mg BID x 1 week then 5mg BID Outpatient age appropriate cancer screening D/C planning Dr Silva
[2018-07-03] MEDS: ATORVASTATIN CA 20 MG TABLET (FP) PO SCH (21:07)
[2018-07-04] MEDS: metFORMIN HCL 500 MG TABLET (FP) PO SCH ×2 (06:36→16:49)
[2018-07-04 07:20] LABS: BASO % 0.6 % (0-2.0); EOS % 3.8 % (0-4.5); HEMATOCRIT 36.8 % (32.4-45.2); HEMOGLOBIN 12.3 GM/dL (10.7-15.3); LYMPH % 35.1 % (8-40); MCH 32.3 pg (25.7-33.7); MCHC 33.3 g/dl (32.0-36.0); MEAN CELL VOLUME 97.1 fl (80-96); MEAN PLT VOLUME 9.7 fl (7.5-11.1); MONO % 9.5 % (3.8-10.2); PLATELET COUNT 175 K/MM3 (134-434); RBC 3.79 M/mm3 (3.60-5.2); WHITE BLOOD COUNT 3.9 K/mm3 (4.0-10.0)
[2018-07-04] MEDS ORDERED: PT OWN MED DRAWER 7, Y5N ONE (09:10)
[2018-07-04] MEDS: APIXABAN 5 MG TABLET PO SCH ×2 (09:23→21:15)
[2018-07-04] MEDS: LOSARTAN 50MG/HCTZ 12.5MG 1 TAB (FP) PO SCH (09:24)
[2018-07-04] MEDS ORDERED: AMMONIUM LACTATE 12% LOTION 225 GM BOTTLE TP PRN (10:12)
--- NOTE | 2018-07-04 10:12 | CONSULT ---
Consult Consult Specialty:: Podiatry Reason for Consultation:: xerosis - History of Present Illness Chief Complaint: Dry skin b/l feet - History Source History Provided By: Patient - Past Medical History Cardio/Vascular: Yes: HTN ...: No Endocrine: Yes: Diabetes Mellitus - Alcohol/Substance Use Hx Alcohol Use: No - Smoking History Smoking history: Never smoked Have you smoked in the past 12 months: No Aproximately how many cigarettes per day: 0 Home Medications - Allergies Allergies/Adverse Reactions: Allergies Allergy/AdvReac Type Severity Reaction Status Date / Time No Known Allergies Allergy Verified 06/30/18 19:41 - Home Medications Home Medications: Ambulatory Orders Aspirin [ASA -] 81 mg PO DAILY 12/28/12 Simvastatin [Zocor -] 20 mg PO HS 12/28/12 metFORMIN HCL [Glucophage] 1,000 mg PO BID 12/28/12 Losartan/Hydrochlorothiazide [Losartan-Hctz 100-25 mg Tab] 1 tab PO DAILY Metoprolol Succinate 50 mg PO DAILY 06/30/18 Physical Exam Vital Signs: Vital Signs Temperature 98.1 F 07/04/18 07:38 Pulse Rate 64 07/04/18 07:38 Respiratory Rate 18 07/04/18 09:00 Blood Pressure 154/67 07/04/18 07:38 O2 Sat by Pulse Oximetry (%) 98 07/04/18 09:00 Extremities: Yes: Other (xerosis b/l soles of feet, -ulceration, -cellulitis) Peripheral Pulses WNL: Yes Labs: CBC, BMP 07/04/18 05:30 07/02/18 06:00 Assessment/Plan xerosis b/l feet Apply ammonimum lactate BID to feet not between toes. Diabetic foot care outpatient by her Operations And Maintenance Specialist. Will follow.
--- NOTE | 2018-07-04 11:45 | PN ---
Progress Note, Physician Chief Complaint: ambulating now without sob knee pain no change refusing sx w ortho best tx now [facility]hab - Current Medication List Current Medications: Active Medications Apixaban (Eliquis -) 10 mg PO BID [facility] Last Admin: 07/04/18 09:23 Dose: 10 mg Atorvastatin Calcium (Lipitor -) 20 mg PO HS [facility] Last Admin: 07/03/18 21:07 Dose: 20 mg HCTZ/Losartan Potassium (Hyzaar -) 1 tab PO DAILY [facility] Last Admin: 07/04/18 09:24 Dose: 1 tab Lactic Acid (Lac-Hydrin 12) 1 applic TP DAILY PRN PRN Reason: xerosis Last Admin: 07/04/18 11:42 Dose: 1 applic Metformin HCl (Glucophage -) 1,000 mg PO BID@0700,1630 [facility] Last Admin: 07/04/18 06:36 Dose: 1,000 mg - Objective Vital Signs: Vital Signs Temperature 98.1 F 07/04/18 07:38 Pulse Rate 64 07/04/18 07:38 Respiratory Rate 18 07/04/18 09:00 Blood Pressure 154/67 07/04/18 07:38 O2 Sat by Pulse Oximetry (%) 98 07/04/18 09:00 Labs: CBC, BMP 07/04/18 05:30 07/02/18 06:00 INR, PTT INR 1.18 (0.83-1.09) H 07/02/18 06:00
--- NOTE | 2018-07-04 13:23 | PN ---
Progress Note, Physician History of Present Illness: pulmonary alert,oob-chair,no distress,-cp,-sob - Current Medication List Current Medications: Active Medications Apixaban (Eliquis -) 10 mg PO BID [facility] Last Admin: 07/04/18 09:23 Dose: 10 mg Atorvastatin Calcium (Lipitor -) 20 mg PO HS [facility] Last Admin: 07/03/18 21:07 Dose: 20 mg HCTZ/Losartan Potassium (Hyzaar -) 1 tab PO DAILY [facility] Last Admin: 07/04/18 09:24 Dose: 1 tab Lactic Acid (Lac-Hydrin 12) 1 applic TP DAILY PRN PRN Reason: xerosis Last Admin: 07/04/18 11:42 Dose: 1 applic Metformin HCl (Glucophage -) 1,000 mg PO BID@0700,1630 [facility] Last Admin: 07/04/18 06:36 Dose: 1,000 mg - Objective Vital Signs: Vital Signs Temperature 97.1 F L 07/04/18 10:00 Pulse Rate 58 L 07/04/18 10:00 Respiratory Rate 18 07/04/18 10:00 Blood Pressure 116/84 07/04/18 10:00 O2 Sat by Pulse Oximetry (%) 98 07/04/18 09:00 Constitutional: Yes: Well Nourished, Calm Eyes: Yes: WNL HENT: Yes: WNL Neck: Yes: WNL Cardiovascular: Yes: Regular Rate and Rhythm, S1, S2 Respiratory: Yes: CTA Bilaterally Gastrointestinal: Yes: Normal Bowel Sounds, Soft Extremities: Yes: WNL Edema: No Labs: CBC, BMP 07/04/18 05:30 07/02/18 06:00 INR, PTT INR 1.18 (0.83-1.09) H 07/02/18 06:00 Assessment/Plan Problem List - Problems (1) Pulmonary embolism Code(s): I26.99 - OTHER PULMONARY EMBOLISM WITHOUT ACUTE COR PULMONALE Qualifiers: Pulmonary embolism type: unspecified Chronicity: unspecified Acute cor pulmonale presence: without acute cor pulmonale Qualified Code(s): I26.99 - Other pulmonary embolism without acute cor pulmonale Assessment/Plan Acute Pulmonary Embolism HTN DM Hypercholesterolemia - continue anticoagulation for at least 6 months - pt saturating 99% on room air, no need for supplemental O2 - outpt age appropriate cancer screening - outpt PFTs DR NAIK
[2018-07-04] MEDS: ATORVASTATIN CA 20 MG TABLET (FP) PO SCH (21:15)
[2018-07-05] MEDS: metFORMIN HCL 500 MG TABLET (FP) PO SCH (06:15)
[2018-07-05 06:18] VITALS: BP 123/62; PULSE 73; TEMP 97.8
[2018-07-05 06:31] LABS: BASO % 0.6 % (0-2.0); EOS % 3.6 % (0-4.5); HEMATOCRIT 37.3 % (32.4-45.2); HEMOGLOBIN 12.4 GM/dL (10.7-15.3); LYMPH % 40.5 % (8-40); MCH 32.4 pg (25.7-33.7); MCHC 33.3 g/dl (32.0-36.0); MEAN CELL VOLUME 97.2 fl (80-96); MEAN PLT VOLUME 9.4 fl (7.5-11.1); NEUT % 45.3 % (42.8-82.8); PLATELET COUNT 177 K/MM3 (134-434); RBC 3.83 M/mm3 (3.60-5.2); RDW 12.9 % (11.6-15.6); WHITE BLOOD COUNT 3.4 K/mm3 (4.0-10.0)
[2018-07-05] MEDS ORDERED: PT OWN MED DRAWER 7, Y5N ONE ×2 (09:43→11:23)
[2018-07-05] MEDS: APIXABAN 5 MG TABLET PO SCH (09:46)
--- NOTE | 2018-07-05 11:07 | PN ---
Progress Note, Physician History of Present Illness: pulmonary alert,no distress,oob-chair,-cp,-sob - Current Medication List Current Medications: Active Medications Apixaban (Eliquis -) 10 mg PO BID [facility] Last Admin: 07/05/18 09:46 Dose: 10 mg Atorvastatin Calcium (Lipitor -) 20 mg PO HS [facility] Last Admin: 07/04/18 21:15 Dose: 20 mg HCTZ/Losartan Potassium (Hyzaar -) 1 tab PO DAILY [facility] Last Admin: 07/04/18 09:24 Dose: 1 tab Lactic Acid (Lac-Hydrin 12) 1 applic TP DAILY PRN PRN Reason: xerosis Last Admin: 07/04/18 11:42 Dose: 1 applic Metformin HCl (Glucophage -) 1,000 mg PO BID@0700,1630 [facility] Last Admin: 07/05/18 06:15 Dose: 1,000 mg - Objective Vital Signs: Vital Signs Temperature 97.8 F 07/05/18 06:17 Pulse Rate 73 07/05/18 06:17 Respiratory Rate 17 07/05/18 06:17 Blood Pressure 123/62 07/05/18 06:17 O2 Sat by Pulse Oximetry (%) 99 07/04/18 20:48 Constitutional: Yes: Well Nourished, Calm Eyes: Yes: WNL HENT: Yes: WNL Neck: Yes: WNL Cardiovascular: Yes: Regular Rate and Rhythm, S1, S2 Respiratory: Yes: CTA Bilaterally Gastrointestinal: Yes: Normal Bowel Sounds, Soft Extremities: Yes: WNL Edema: No Labs: CBC, BMP 07/05/18 05:30 07/02/18 06:00 INR, PTT INR 1.18 (0.83-1.09) H 07/02/18 06:00 Assessment/Plan Problem List - Problems (1) Pulmonary embolism Code(s): I26.99 - OTHER PULMONARY EMBOLISM WITHOUT ACUTE COR PULMONALE Qualifiers: Pulmonary embolism type: unspecified Chronicity: unspecified Acute cor pulmonale presence: without acute cor pulmonale Qualified Code(s): I26.99 - Other pulmonary embolism without acute cor pulmonale Assessment/Plan Acute Pulmonary Embolism HTN DM Hypercholesterolemia - continue anticoagulation for at least 6 months - outpt age appropriate cancer screening - outpt PFTs DR NAIK
[2018-07-05] MEDS: LOSARTAN 50MG/HCTZ 12.5MG 1 TAB (FP) PO SCH (11:29)
--- NOTE | 2018-07-05 12:15 | DS ---
Physical Examination Vital Signs: Vital Signs Temperature 97.8 F 07/05/18 06:17 Pulse Rate 73 07/05/18 06:17 Respiratory Rate 17 07/05/18 06:17 Blood Pressure 123/62 07/05/18 06:17 O2 Sat by Pulse Oximetry (%) 99 07/04/18 20:48 Constitutional: Yes: Well Nourished Eyes: Yes: WNL HENT: Yes: WNL Neck: Yes: WNL Cardiovascular: Yes: WNL Respiratory: Yes: WNL Gastrointestinal: Yes: WNL ...Rectal Exam: Yes: Deferred Renal/: Yes: WNL Breast(s): Yes: WNL Musculoskeletal: Yes: WNL Extremities: Yes: WNL Edema: No Peripheral Pulses WNL: Yes Integumentary: Yes: WNL Neurological: Yes: WNL ...Motor Strength: WNL Psychiatric: Yes: WNL Labs: CBC, BMP 07/05/18 05:30 07/02/18 06:00 Discharge Summary Reason For Visit: PULMONARY EMBOLISM Current Active Problems Pulmonary embolism (Acute) Condition: Stable - Instructions Diet, Activity, Other Instructions: 07/03/18---Eliquis 10mg po q12h for 7days then 5mg po q12h. Eliquis 10mg po started 07/01/18 @2139. Disposition: HOME - Home Medications Comprehensive Discharge Medication List: Ambulatory Orders Aspirin [ASA -] 81 mg PO DAILY 12/28/12 Simvastatin [Zocor -] 20 mg PO HS 12/28/12 metFORMIN HCL [Glucophage] 1,000 mg PO BID 12/28/12 Losartan/Hydrochlorothiazide [Losartan-Hctz 100-25 mg Tab] 1 tab PO DAILY Metoprolol Succinate 50 mg PO DAILY 06/30/18
== END 2018-07-05 13:54 | disposition home or self-care (01) | DRG 176 ==
LOC: JER 19:32 → JERBED 20:25 → J4S 07-01 16:03
PROVIDERS: ADMIT Family Medicine; ATTEND Family Medicine
DX: I26.99 Other pulmonary embolism without acute cor pulmonale (principal); E11.9 Type 2 diabetes mellitus without complications; I10 Essential (primary) hypertension; E78.00 Pure hypercholesterolemia, unspecified; L85.3 Xerosis cutis
CPT/HCPCS: 36415; 71045-TC-FY; 71046-TC-FY; 80048; 80053; 82550; 82553; 82962; 83036; 83880; 84443; 84484; 85025; 85027; 85379; 85610; 87086; 93005; 93010; 93306-TC; 93970-TC; 97116-GP; 97161-GP; 99285-25; J7030